=== PATIENT | female | born 1980 | race American Indian/Alaskan Native ===

== ENCOUNTER 2017-06-26 10:22 | Emergency (ER) | payer MEDICAID ==
[2017-06-26 11:24] LABS: ADD MAN DIFF? NO
[2017-06-26 11:32] LABS: BASOPHILS % 0.2 % (0.0-2.0); EOSINOPHILS # 0.1 10^3/ul (0.0-0.5); EOSINOPHILS % 0.5 % (0.0-7.0); HEMATOCRIT 38.4 % (37.0-47.0); LYMPHOCYTES % 19.3 % (15.0-51.0); MEAN CORPUSCULAR HEMOGLOBIN 27.4 pg (29.0-33.0); MEAN CORPUSCULAR HGB CONC 33.9 g/dl (32.0-37.0); MEAN CORPUSCULAR VOLUME 80.8 fl (82.0-101.0); MEAN PLATELET VOLUME 9.8 fl (7.4-10.4); MONOCYTE # 0.5 10^3/ul (0.3-0.9); MONOCYTES % 4.4 % (0.0-11.0); NEUTROPHIL # 7.7 10^3/ul (1.6-7.5); NEUTROPHILS % 75.1 % (39.0-77.0); PLATELET COUNT 272 10^3/UL (140-415); RED BLOOD COUNT 4.75 10^6/ul (4.20-5.40); RED CELL DISTRIBUTION WIDTH 13.5 % (11.5-14.5)
[2017-06-26 11:32] LABS: WHITE BLOOD COUNT 10.2 10^3/ul (4.8-10.8)
[2017-06-26 12:11] LABS: ADD UMIC YES; UR AMORPHOUS CRYSTAL FEW /HPF (NONE SEEN); UR ASCORBIC ACID 20 mg/dL (NEGATIVE); UR BACTERIA MODERATE /HPF (NONE SEEN); UR BILIRUBIN (Dip) NEGATIVE (NEGATIVE); UR BLOOD (Dip) 2+ mg/dL (NEGATIVE); UR CLARITY SLIGHTLY CLOUDY (CLEAR); UR COLOR YELLOW (YELLOW); UR GLUCOSE (Dip) NEGATIVE (NEGATIVE); UR KETONES (Dip) NEGATIVE (NEGATIVE); UR LEUKOCYTE ESTERASE (Dip) 1+ Leu/ul (NEGATIVE); UR NITRITE (Dip) NEGATIVE (NEGATIVE); UR RBC 3 /HPF (0-5); UR SPECIFIC GRAVITY (Dip) 1.006 (1.003-1.030); UR SQUAMOUS EPITHELIAL CELL FEW /HPF (FEW); UR TOTAL PROTEIN (Dip) NEGATIVE (NEGATIVE); UR UROBILINOGEN (Dip) NEGATIVE (NEGATIVE); UR WBC 7 /HPF (0-5)
== END 2017-06-26 13:17 | disposition home or self-care (01) ==
LOC: FTE 10:22
DX: O20.9 Hemorrhage in early pregnancy, unspecified (principal); O23.41 Unspecified infection of urinary tract in pregnancy, first trimester; O36.0111 Maternal care for anti-D [Rh] antibodies, first trimester, fetus 1; R10.2 Pelvic and perineal pain; Z3A.11 11 weeks gestation of pregnancy
CPT/HCPCS: 36415; 76801; 81001; 84702; 85025; 86900; 86901; 99284-25

== ENCOUNTER 2017-11-03 18:23 | Inpatient (IN) | payer OTHER ==
[2017-11-03 19:43] LABS: ADD MAN DIFF? NO
[2017-11-03 19:44] LABS: WHITE BLOOD COUNT 10.2 10^3/ul (4.8-10.8)
[2017-11-03 19:44] LABS: BASOPHILS % 0.2 % (0.0-2.0); EOSINOPHILS % 0.4 % (0.0-7.0); HEMATOCRIT 34.2 % (37.0-47.0); HEMOGLOBIN 11.5 g/dl (12.0-16.0); IMMATURE GRANS #M 0.06 10^3/ul; IMMATURE GRANS % (M) 0.6 %; LYMPHOCYTES # 1.5 10^3/ul (0.8-2.9); LYMPHOCYTES % 14.8 % (15.0-51.0); MEAN CORPUSCULAR HEMOGLOBIN 27.5 pg (29.0-33.0); MEAN CORPUSCULAR HGB CONC 33.6 g/dl (32.0-37.0); MEAN CORPUSCULAR VOLUME 81.8 fl (82.0-101.0); MEAN PLATELET VOLUME 9.9 fl (7.4-10.4); MONOCYTE # 0.4 10^3/ul (0.3-0.9); MONOCYTES % 4.3 % (0.0-11.0); NEUTROPHIL # 8.1 10^3/ul (1.6-7.5); NEUTROPHILS % 79.7 % (39.0-77.0); PLATELET COUNT 212 10^3/UL (140-415); RED BLOOD COUNT 4.18 10^6/ul (4.20-5.40); RED CELL DISTRIBUTION WIDTH 14.5 % (11.5-14.5)
[2017-11-03 19:56] LABS: ADD UMIC YES; UR ASCORBIC ACID NEGATIVE (NEGATIVE); UR BACTERIA FEW /HPF (NONE SEEN); UR BILIRUBIN (Dip) NEGATIVE (NEGATIVE); UR BLOOD (Dip) 3+ mg/dL (NEGATIVE); UR CLARITY CLEAR (CLEAR); UR COLOR YELLOW (YELLOW); UR GLUCOSE (Dip) NEGATIVE (NEGATIVE); UR KETONES (Dip) NEGATIVE (NEGATIVE); UR LEUKOCYTE ESTERASE (Dip) NEGATIVE Leu/ul (NEGATIVE); UR NITRITE (Dip) NEGATIVE (NEGATIVE); UR RBC 141 /HPF (0-5); UR SPECIFIC GRAVITY (Dip) 1.015 (1.003-1.030); UR TOTAL PROTEIN (Dip) NEGATIVE (NEGATIVE); UR UROBILINOGEN (Dip) NEGATIVE (NEGATIVE); UR WBC 1 /HPF (0-5)
[2017-11-03] MEDS ORDERED: GLUCAGON 1 MG INJ IM (20:00)
[2017-11-03] MEDS ORDERED: DEXTROSE 50% 50 ML SYRINGE IV ×2 (20:00)
[2017-11-03] MEDS ORDERED: GLUCOSE GEL 15 GRAM TUBE BUCCAL (20:00)
[2017-11-03] MEDS ORDERED: GLUCOSE GEL 15 GRAM TUBE PO ×2 (20:00)
[2017-11-03 20:06] LABS: GLUCOSE 100 mg/dl (70-220)
[2017-11-03] MEDS: LACTATED RINGER'S 1,000 ML IV (20:08)
[2017-11-03] MEDS: MAGNESIUM SULFATE 4 GM/100 ML 100 ML IV (20:15)
[2017-11-03] MEDS: BETAMET NA PHOS/AC(6 MG/ML) 5ML INJ IM (20:19)
[2017-11-03] MEDS ORDERED: CA GLUCONATE (GM) 10% 10ML INJ IV (20:30)
[2017-11-03] MEDS: MAGNESIUM SULFATE 20 GM/500 ML 500 ML IV (20:56)
[2017-11-03] MEDS: INSULIN ASPART [NOVOLOG] 3 ML PEN SC (21:00)
[2017-11-03] MEDS: metFORMIN (XR) 500 MG TAB PO (21:00)
[2017-11-04 01:22] LABS: MAGNESIUM 4.6 mg/dl (1.7-2.5)
[2017-11-04] MEDS: MAGNESIUM SULFATE 20 GM/500 ML 500 ML IV ×2 (06:42→15:57)
[2017-11-04] MEDS: LACTATED RINGER'S 1,000 ML IV ×2 (06:42→20:40)
[2017-11-04] MEDS: ACCU-CHEK XX ×5 (07:30→20:42)
[2017-11-04] MEDS: INSULIN ASPART [NOVOLOG] 3 ML PEN SC ×4 (07:35→21:00)
[2017-11-04] MEDS: PRENATAL VITAMIN PO (08:12)
[2017-11-04] MEDS: metFORMIN (XR) 500 MG TAB PO ×2 (08:12→17:36)
[2017-11-04 09:00] LABS: MAGNESIUM 5.7 mg/dl (1.7-2.5)
[2017-11-04 12:43] LABS: MAGNESIUM 5.9 mg/dl (1.7-2.5)
[2017-11-04] MEDS: ACETAMINOPHEN 325 MG TAB PO (18:41)
[2017-11-04 19:04] LABS: MAGNESIUM 5.9 mg/dl (1.7-2.5)
[2017-11-04] MEDS: BETAMET NA PHOS/AC(6 MG/ML) 5ML INJ IM (20:40)
[2017-11-05] MEDS: MAGNESIUM SULFATE 20 GM/500 ML 500 ML IV ×2 (01:02→09:53)
[2017-11-05 01:28] LABS: MAGNESIUM 6.2 mg/dl (1.7-2.5)
[2017-11-05] MEDS: ACCU-CHEK XX ×3 (07:30→15:00)
[2017-11-05] MEDS: INSULIN ASPART [NOVOLOG] 3 ML PEN SC ×3 (07:35→17:35)
[2017-11-05] MEDS: PRENATAL VITAMIN PO (08:55)
[2017-11-05] MEDS: metFORMIN (XR) 500 MG TAB PO ×2 (08:55→18:06)
[2017-11-05 09:40] LABS: MAGNESIUM 6.7 mg/dl (1.7-2.5)
[2017-11-05] MEDS: LACTATED RINGER'S 1,000 ML IV (09:46)
[2017-11-05] MEDS: NIFEdipine 10 MG CAP PO ×3 (11:06→18:06)
== END 2017-11-05 19:45 | disposition home or self-care (01) | DRG 780 ==
LOC: OBT 18:23 → L-D 18:25 → OBT 19:30 → PP1 19:30
DX: O47.03 False labor before 37 completed weeks of gestation, third trimester (principal); Z3A.30 30 weeks gestation of pregnancy; O13.4 Gestational [pregnancy-induced] hypertension without significant proteinuria, complicating childbirth; O24.429 Gestational diabetes mellitus in childbirth, unspecified control
CPT/HCPCS: 76815; 76817; 76818; 81001; 82947; 82962; 83735; 85025; 87086

== ENCOUNTER 2017-11-21 18:39 | Inpatient (IN) | payer OTHER ==
[2017-11-21] MEDS: LACTATED RINGER'S 1,000 ML IV ×2 (19:19→23:59)
[2017-11-21 19:20] LABS: ADD MAN DIFF? NO
[2017-11-21 19:26] LABS: WHITE BLOOD COUNT 8.6 10^3/ul (4.8-10.8)
[2017-11-21 19:26] LABS: BASOPHILS % 0.5 % (0.0-2.0); EOSINOPHILS % 0.5 % (0.0-7.0); HEMATOCRIT 35.1 % (37.0-47.0); HEMOGLOBIN 11.6 g/dl (12.0-16.0); LYMPHOCYTES # 1.6 10^3/ul (0.8-2.9); LYMPHOCYTES % 19.1 % (15.0-51.0); MEAN CORPUSCULAR HEMOGLOBIN 26.9 pg (29.0-33.0); MEAN CORPUSCULAR VOLUME 81.4 fl (82.0-101.0); MEAN PLATELET VOLUME 10.5 fl (7.4-10.4); MONOCYTE # 0.5 10^3/ul (0.3-0.9); MONOCYTES % 5.6 % (0.0-11.0); NEUTROPHIL # 6.3 10^3/ul (1.6-7.5); NEUTROPHILS % 73.7 % (39.0-77.0); PLATELET COUNT 253 10^3/UL (140-415); RED BLOOD COUNT 4.31 10^6/ul (4.20-5.40); RED CELL DISTRIBUTION WIDTH 14.6 % (11.5-14.5)
[2017-11-21 19:29] LABS: PLATELET COUNT 253 10^3/UL (140-415)
[2017-11-21] MEDS: TERBUTALINE 1 MG/ML INJ SC (19:33)
[2017-11-21 19:55] LABS: INR 0.91; PROTIME 12.3 Sec (11.9-14.9)
[2017-11-21 19:56] LABS: PARTIAL THROMBOPLASTIN TIME 27.5 Sec (25.0-35.0); THROMBIN TIME 15.4 SEC (13.8-19.1)
[2017-11-21] MEDS ORDERED: ACETAMINOPHEN 325 MG TAB PO (20:30)
[2017-11-21] MEDS ORDERED: GLUCAGON 1 MG INJ IM (21:00)
[2017-11-21] MEDS ORDERED: DEXTROSE 50% 50 ML SYRINGE IV ×2 (21:00)
[2017-11-21] MEDS ORDERED: GLUCOSE GEL 15 GRAM TUBE PO ×2 (21:00)
[2017-11-21] MEDS ORDERED: GLUCOSE GEL 15 GRAM TUBE BUCCAL (21:00)
[2017-11-21] MEDS: MAGNESIUM SULFATE 4 GM/100 ML 100 ML IV (21:13)
[2017-11-21] MEDS: MAGNESIUM SULFATE 20 GM/500 ML 500 ML IV (21:47)
[2017-11-21] MEDS: metFORMIN 850 MG TAB PO (22:20)
[2017-11-22 01:26] LABS: ALANINE AMINOTRANSFERASE 41 IU/L (13-69); ALBUMIN 3.6 g/dl (3.3-4.9); ALBUMIN/GLOBULIN RATIO 0.92; ALKALINE PHOSPHATASE 158 IU/L (42-121); ANION GAP 16 (8-16); ASPARTATE AMINO TRANSFERASE 47 IU/L (15-46); BILIRUBIN,INDIRECT 0.2 mg/dl (0-1.1); BILIRUBIN,TOTAL 0.2 mg/dl (0.2-1.3); BLOOD UREA NITROGEN 5 mg/dl (7-20); CALCIUM 8.4 mg/dl (8.4-10.2); CARBON DIOXIDE 23 mmol/L (21-31); CHLORIDE 104 mmol/L (97-110); GLUCOSE 98 mg/dl (70-220); MAGNESIUM 4.4 mg/dl (1.7-2.5); POTASSIUM 3.6 mmol/L (3.5-5.1); SODIUM 139 mmol/L (135-144); TOTAL PROTEIN 7.5 g/dl (6.1-8.1)
[2017-11-22] MEDS: LACTATED RINGER'S 1,000 ML IV ×2 (05:46→14:07)
[2017-11-22] MEDS: MAGNESIUM SULFATE 20 GM/500 ML 500 ML IV ×2 (07:22→16:55)
[2017-11-22 08:18] LABS: MAGNESIUM 5.2 mg/dl (1.7-2.5)
[2017-11-22] MEDS: ACCU-CHEK XX ×4 (08:30→20:32)
[2017-11-22] MEDS: metFORMIN 850 MG TAB PO ×2 (08:41→18:00)
[2017-11-22] MEDS: FERROUS SULFATE (EC) 325 MG TAB PO (08:41)
[2017-11-22] MEDS: PRENATAL VITAMIN PO (08:42)
[2017-11-22] MEDS: BETAMET NA PHOS/AC(6 MG/ML) 5ML INJ IM (12:54)
[2017-11-22 13:50] LABS: MAGNESIUM 5.4 mg/dl (1.7-2.5)
[2017-11-22 17:12] LABS: ADD UMIC YES; UR ASCORBIC ACID NEGATIVE (NEGATIVE); UR BACTERIA FEW /HPF (NONE SEEN); UR BILIRUBIN (Dip) NEGATIVE (NEGATIVE); UR BLOOD (Dip) 2+ mg/dL (NEGATIVE); UR CLARITY CLEAR (CLEAR); UR COLOR STRAW (YELLOW); UR GLUCOSE (Dip) NEGATIVE (NEGATIVE); UR KETONES (Dip) NEGATIVE (NEGATIVE); UR LEUKOCYTE ESTERASE (Dip) NEGATIVE Leu/ul (NEGATIVE); UR NITRITE (Dip) NEGATIVE (NEGATIVE); UR RBC 0 /HPF (0-5); UR SPECIFIC GRAVITY (Dip) 1.004 (1.003-1.030); UR TOTAL PROTEIN (Dip) NEGATIVE (NEGATIVE); UR UROBILINOGEN (Dip) NEGATIVE (NEGATIVE); UR WBC 1 /HPF (0-5)
[2017-11-22 18:11] LABS: MAGNESIUM 5.7 mg/dl (1.7-2.5)
[2017-11-23] MEDS: MAGNESIUM SULFATE 20 GM/500 ML 500 ML IV ×2 (03:49→13:58)
[2017-11-23] MEDS: LACTATED RINGER'S 1,000 ML IV ×2 (03:49→15:55)
[2017-11-23] MEDS: ACCU-CHEK XX ×4 (07:58→20:37)
[2017-11-23] MEDS: metFORMIN 850 MG TAB PO ×2 (08:14→17:47)
[2017-11-23] MEDS: FERROUS SULFATE (EC) 325 MG TAB PO (08:14)
[2017-11-23] MEDS: PRENATAL VITAMIN PO (08:14)
[2017-11-23] MEDS: AL HYDROX/MG HYDROX/SIMETH 30 ML CUP PO (09:09)
[2017-11-23] MEDS: BETAMET NA PHOS/AC(6 MG/ML) 5ML INJ IM (12:06)
[2017-11-23] MEDS: NIFEdipine 10 MG CAP PO (20:10)
[2017-11-23] MEDS: NITROFURANTOIN (SR) 100 MG CAP PO (20:39)
[2017-11-24] MEDS: NIFEdipine 10 MG CAP PO ×4 (00:53→17:41)
[2017-11-24] MEDS: LACTATED RINGER'S 1,000 ML IV (05:28)
[2017-11-24] MEDS: ACCU-CHEK XX ×3 (08:21→15:25)
[2017-11-24] MEDS: metFORMIN 850 MG TAB PO ×2 (08:24→17:40)
[2017-11-24] MEDS: FERROUS SULFATE (EC) 325 MG TAB PO (08:25)
[2017-11-24] MEDS: NITROFURANTOIN (SR) 100 MG CAP PO (08:25)
[2017-11-24] MEDS: PRENATAL VITAMIN PO (08:25)
== END 2017-11-24 19:45 | disposition home or self-care (01) | DRG 778 ==
LOC: OBT 18:39 → L-D 18:41 → OBT 19:32 → L-D 19:32 → PP1 21:35
PROVIDERS: Obstetrics & Gynecology
DX: O60.03 Preterm labor without delivery, third trimester (principal)
CPT/HCPCS: 76815; 76817; 76818; 80053; 81001; 82962; 83735; 85025; 85049; 85610; 85670; 85730; 87086; 96372

== ENCOUNTER 2017-12-09 17:31 | Inpatient (IN) | payer OTHER ==
[2017-12-09 18:49] LABS: ADD MAN DIFF? NO
[2017-12-09 18:51] LABS: BASOPHILS % 0.3 % (0.0-2.0); EOSINOPHILS % 0.3 % (0.0-7.0); HEMATOCRIT 34.7 % (37.0-47.0); HEMOGLOBIN 11.2 g/dl (12.0-16.0); LYMPHOCYTES % 21.2 % (15.0-51.0); MEAN CORPUSCULAR HEMOGLOBIN 25.7 pg (29.0-33.0); MEAN CORPUSCULAR HGB CONC 32.3 g/dl (32.0-37.0); MEAN CORPUSCULAR VOLUME 79.6 fl (82.0-101.0); MEAN PLATELET VOLUME 10.8 fl (7.4-10.4); MONOCYTE # 0.4 10^3/ul (0.3-0.9); MONOCYTES % 4.6 % (0.0-11.0); NEUTROPHILS % 73.3 % (39.0-77.0); PLATELET COUNT 260 10^3/UL (140-415); RED BLOOD COUNT 4.36 10^6/ul (4.20-5.40); RED CELL DISTRIBUTION WIDTH 14.8 % (11.5-14.5)
[2017-12-09 18:51] LABS: WHITE BLOOD COUNT 9.5 10^3/ul (4.8-10.8)
[2017-12-09] MEDS: LACTATED RINGER'S 1,000 ML IV (18:51)
[2017-12-09] MEDS: ACCU-CHEK XX (19:35)
[2017-12-09] MEDS: MAGNESIUM SULFATE 4 GM/100 ML 100 ML IV (19:46)
[2017-12-09 19:58] LABS: ALANINE AMINOTRANSFERASE 33 IU/L (13-69); ALBUMIN 3.9 g/dl (3.3-4.9); ALBUMIN/GLOBULIN RATIO 0.97; ALKALINE PHOSPHATASE 175 IU/L (42-121); ANION GAP 14 (8-16); ASPARTATE AMINO TRANSFERASE 42 IU/L (15-46); BILIRUBIN,INDIRECT 0.3 mg/dl (0-1.1); BILIRUBIN,TOTAL 0.3 mg/dl (0.2-1.3); BLOOD UREA NITROGEN 6 mg/dl (7-20); CALCIUM 9.1 mg/dl (8.4-10.2); CARBON DIOXIDE 21 mmol/L (21-31); CHLORIDE 105 mmol/L (97-110); CREATININE 0.35 mg/dl (0.44-1.00); GLUCOSE 85 mg/dl (70-220); POTASSIUM 3.8 mmol/L (3.5-5.1); SODIUM 136 mmol/L (135-144); TOTAL PROTEIN 7.9 g/dl (6.1-8.1)
[2017-12-09] MEDS: MAGNESIUM SULFATE 20 GM/500 ML 500 ML IV (20:13)
[2017-12-09] MEDS: TERBUTALINE 1 MG/ML INJ SC (21:24)
[2017-12-10] MEDS: LACTATED RINGER'S 1,000 ML IV ×2 (01:12→19:01)
[2017-12-10 01:28] LABS: MAGNESIUM 3.7 mg/dl (1.7-2.5)
[2017-12-10] MEDS: MAGNESIUM SULFATE 20 GM/500 ML 500 ML IV ×2 (04:53→15:29)
[2017-12-10 08:08] LABS: MAGNESIUM 5.4 mg/dl (1.7-2.5)
[2017-12-10 18:01] LABS: MAGNESIUM 6.3 mg/dl (1.7-2.5)
[2017-12-10] MEDS: ACETAMINOPHEN 325 MG TAB PO ×2 (19:02→23:56)
[2017-12-11 01:44] LABS: MAGNESIUM 6.2 mg/dl (1.7-2.5)
[2017-12-11] MEDS: LACTATED RINGER'S 1,000 ML IV ×2 (02:12→16:38)
[2017-12-11] MEDS: MAGNESIUM SULFATE 20 GM/500 ML 500 ML IV ×2 (02:12→12:58)
[2017-12-11 07:47] LABS: MAGNESIUM 6.5 mg/dl (1.7-2.5)
[2017-12-11] MEDS: PRENATAL VITAMIN PO (08:43)
[2017-12-11] MEDS: metFORMIN 500 MG TAB PO (08:43)
[2017-12-11 14:19] LABS: MAGNESIUM 5.9 mg/dl (1.7-2.5)
[2017-12-11] MEDS: ACETAMINOPHEN 325 MG TAB PO (16:33)
[2017-12-11] MEDS: ACCU-CHEK XX ×2 (16:43→19:35)
[2017-12-11 18:39] LABS: MAGNESIUM 6.3 mg/dl (1.7-2.5)
[2017-12-11] MEDS: NIFEdipine 10 MG CAP PO (19:56)
[2017-12-12] MEDS: NIFEdipine 10 MG CAP PO ×3 (00:07→11:51)
[2017-12-12] MEDS: LACTATED RINGER'S 1,000 ML IV ×2 (02:28→10:04)
[2017-12-12] MEDS: PRENATAL VITAMIN PO (09:19)
[2017-12-12] MEDS: metFORMIN 500 MG TAB PO (09:20)
[2017-12-12] MEDS: ACCU-CHEK XX ×3 (11:20→15:05)
== END 2017-12-12 15:45 | disposition home or self-care (01) | DRG 782 ==
LOC: OBT 17:31 → PP1 12-12 11:09 → L-D 17:32 → OBT 17:55 → L-D 17:55
PROVIDERS: Obstetrics & Gynecology
DX: O46.93 Antepartum hemorrhage, unspecified, third trimester (principal); O62.9 Abnormality of forces of labor, unspecified; Z3A.33 33 weeks gestation of pregnancy
CPT/HCPCS: 76815; 80053; 82962; 83735; 85025; 86850; 86900; 86901

== ENCOUNTER 2017-12-16 08:50 | Inpatient (IN) | payer OTHER ==
[2017-12-16] MEDS: BETAMET NA PHOS/AC(6 MG/ML) 5ML INJ IM (10:50)
[2017-12-16] MEDS: LACTATED RINGER'S 1,000 ML IV ×2 (10:51→21:40)
[2017-12-16] MEDS: MAGNESIUM SULFATE 4 GM/100 ML 100 ML IV (10:56)
[2017-12-16 11:25] LABS: ADD MAN DIFF? NO
[2017-12-16] MEDS: MAGNESIUM SULFATE 20 GM/500 ML 500 ML IV ×2 (11:25→21:40)
[2017-12-16 11:33] LABS: BASOPHILS % 0.4 % (0.0-2.0); EOSINOPHILS % 0.5 % (0.0-7.0); HEMATOCRIT 33.5 % (37.0-47.0); HEMOGLOBIN 10.8 g/dl (12.0-16.0); LYMPHOCYTES # 1.7 10^3/ul (0.8-2.9); LYMPHOCYTES % 20.4 % (15.0-51.0); MEAN CORPUSCULAR HEMOGLOBIN 26.2 pg (29.0-33.0); MEAN CORPUSCULAR HGB CONC 32.2 g/dl (32.0-37.0); MEAN CORPUSCULAR VOLUME 81.3 fl (82.0-101.0); MEAN PLATELET VOLUME 10.8 fl (7.4-10.4); MONOCYTE # 0.5 10^3/ul (0.3-0.9); MONOCYTES % 5.4 % (0.0-11.0); NEUTROPHIL # 6.1 10^3/ul (1.6-7.5); NEUTROPHILS % 72.9 % (39.0-77.0); PLATELET COUNT 276 10^3/UL (140-415); RED BLOOD COUNT 4.12 10^6/ul (4.20-5.40); RED CELL DISTRIBUTION WIDTH 14.9 % (11.5-14.5)
[2017-12-16 11:33] LABS: WHITE BLOOD COUNT 8.4 10^3/ul (4.8-10.8)
[2017-12-16 12:22] LABS: ADD UMIC YES; UR ASCORBIC ACID NEGATIVE (NEGATIVE); UR BACTERIA FEW /HPF (NONE SEEN); UR BILIRUBIN (Dip) NEGATIVE (NEGATIVE); UR BLOOD (Dip) 3+ mg/dL (NEGATIVE); UR CLARITY CLEAR (CLEAR); UR COLOR YELLOW (YELLOW); UR GLUCOSE (Dip) NEGATIVE (NEGATIVE); UR KETONES (Dip) NEGATIVE (NEGATIVE); UR LEUKOCYTE ESTERASE (Dip) NEGATIVE Leu/ul (NEGATIVE); UR NITRITE (Dip) NEGATIVE (NEGATIVE); UR RBC 5 /HPF (0-5); UR SPECIFIC GRAVITY (Dip) 1.005 (1.003-1.030); UR TOTAL PROTEIN (Dip) NEGATIVE (NEGATIVE); UR UROBILINOGEN (Dip) NEGATIVE (NEGATIVE); UR WBC 0 /HPF (0-5)
[2017-12-16] MEDS: metFORMIN (XR) 500 MG TAB PO (17:42)
[2017-12-16 18:32] LABS: ADD MAN DIFF? NO
[2017-12-16 18:33] LABS: MAGNESIUM 5.4 mg/dl (1.7-2.5)
[2017-12-16 18:34] LABS: WHITE BLOOD COUNT 8.6 10^3/ul (4.8-10.8)
[2017-12-16 18:34] LABS: BASOPHILS % 0.1 % (0.0-2.0); HEMATOCRIT 34.4 % (37.0-47.0); HEMOGLOBIN 10.9 g/dl (12.0-16.0); LYMPHOCYTES % 11.8 % (15.0-51.0); MEAN CORPUSCULAR HEMOGLOBIN 25.6 pg (29.0-33.0); MEAN CORPUSCULAR HGB CONC 31.7 g/dl (32.0-37.0); MEAN CORPUSCULAR VOLUME 80.8 fl (82.0-101.0); MEAN PLATELET VOLUME 10.6 fl (7.4-10.4); MONOCYTE # 0.1 10^3/ul (0.3-0.9); MONOCYTES % 0.7 % (0.0-11.0); NEUTROPHIL # 7.5 10^3/ul (1.6-7.5); NEUTROPHILS % 87.1 % (39.0-77.0); PLATELET COUNT 267 10^3/UL (140-415); RED BLOOD COUNT 4.26 10^6/ul (4.20-5.40); RED CELL DISTRIBUTION WIDTH 15.1 % (11.5-14.5)
[2017-12-17] MEDS: ACETAMINOPHEN 325 MG TAB PO (00:34)
[2017-12-17 01:33] LABS: MAGNESIUM 5.8 mg/dl (1.7-2.5)
[2017-12-17] MEDS: LACTATED RINGER'S 1,000 ML IV ×4 (02:30→23:18)
[2017-12-17 07:14] LABS: MAGNESIUM 6.5 mg/dl (1.7-2.5)
[2017-12-17] MEDS: MAGNESIUM SULFATE 20 GM/500 ML 500 ML IV ×2 (07:26→20:00)
[2017-12-17] MEDS: metFORMIN (XR) 500 MG TAB PO ×2 (08:28→17:21)
[2017-12-17] MEDS: PRENATAL VITAMIN PO (11:11)
[2017-12-17] MEDS: BETAMET NA PHOS/AC(6 MG/ML) 5ML INJ IM (11:11)
[2017-12-17 13:05] LABS: MAGNESIUM 6.2 mg/dl (1.7-2.5)
[2017-12-17] MEDS: NIFEdipine 10 MG CAP PO ×2 (15:42→21:19)
[2017-12-18] MEDS: MAGNESIUM SULFATE 20 GM/500 ML 500 ML IV (02:05)
[2017-12-18] MEDS: NIFEdipine 10 MG CAP PO ×4 (03:17→18:49)
[2017-12-18] MEDS: metFORMIN (XR) 500 MG TAB PO ×2 (08:03→18:27)
[2017-12-18] MEDS: PRENATAL VITAMIN PO (11:41)
[2017-12-18] MEDS: LACTATED RINGER'S 1,000 ML IV ×2 (18:27→18:30)
[2017-12-19] MEDS: NIFEdipine 10 MG CAP PO ×5 (00:02→23:44)
[2017-12-19] MEDS: LACTATED RINGER'S 1,000 ML IV ×2 (02:52→17:04)
[2017-12-19] MEDS: metFORMIN (XR) 500 MG TAB PO ×2 (09:38→17:44)
[2017-12-19] MEDS: PRENATAL VITAMIN PO (09:39)
[2017-12-19] MEDS: FERROUS SULFATE (EC) 325 MG TAB PO (09:40)
[2017-12-19] MEDS: MAGNESIUM HYDROXIDE 30ML CUP PO (12:33)
[2017-12-20] MEDS: NIFEdipine 10 MG CAP PO ×3 (05:27→17:43)
[2017-12-20] MEDS: FERROUS SULFATE (EC) 325 MG TAB PO (08:06)
[2017-12-20] MEDS: metFORMIN (XR) 500 MG TAB PO ×2 (08:07→17:43)
[2017-12-20] MEDS: PRENATAL VITAMIN PO (08:07)
[2017-12-20] MEDS: LACTATED RINGER'S 1,000 ML IV (10:17)
[2017-12-21] MEDS: NIFEdipine 10 MG CAP PO ×5 (00:03→23:53)
[2017-12-21] MEDS: ONDANSETRON 4 MG INJ IV (00:12)
[2017-12-21] MEDS: LACTATED RINGER'S 1,000 ML IV (06:01)
[2017-12-21] MEDS: PRENATAL VITAMIN PO (08:31)
[2017-12-21] MEDS: FERROUS SULFATE (EC) 325 MG TAB PO (08:31)
[2017-12-21] MEDS: metFORMIN (XR) 500 MG TAB PO ×2 (08:31→17:35)
[2017-12-22] MEDS: LACTATED RINGER'S 1,000 ML IV ×2 (03:01→18:29)
[2017-12-22] MEDS: NIFEdipine 10 MG CAP PO ×4 (05:49→23:45)
[2017-12-22] MEDS: FERROUS SULFATE (EC) 325 MG TAB PO (08:39)
[2017-12-22] MEDS: PRENATAL VITAMIN PO (08:39)
[2017-12-22] MEDS: metFORMIN (XR) 500 MG TAB PO ×2 (08:40→17:44)
[2017-12-22] MEDS: ACETAMINOPHEN 325 MG TAB PO (22:39)
[2017-12-23] MEDS: NIFEdipine 10 MG CAP PO ×3 (06:01→17:41)
[2017-12-23] MEDS: PRENATAL VITAMIN PO ×2 (08:04→08:10)
[2017-12-23] MEDS: metFORMIN (XR) 500 MG TAB PO ×2 (08:10→17:41)
[2017-12-23] MEDS: FERROUS SULFATE (EC) 325 MG TAB PO (08:10)
[2017-12-23] MEDS ORDERED: MISOPROSTOL 50 MCG CAPSULE PO (12:00)
[2017-12-23] MEDS: LACTATED RINGER'S 1,000 ML IV (13:49)
[2017-12-24] MEDS: NIFEdipine 10 MG CAP PO ×4 (00:06→17:39)
[2017-12-24 06:22] LABS: ADD MAN DIFF? NO
[2017-12-24 06:33] LABS: BASOPHILS % 0.4 % (0.0-2.0); EOSINOPHILS # 0.1 10^3/ul (0.0-0.5); HEMATOCRIT 32.9 % (37.0-47.0); HEMOGLOBIN 10.4 g/dl (12.0-16.0); LYMPHOCYTES # 2.7 10^3/ul (0.8-2.9); LYMPHOCYTES % 30.1 % (15.0-51.0); MEAN CORPUSCULAR HEMOGLOBIN 25.8 pg (29.0-33.0); MEAN CORPUSCULAR HGB CONC 31.6 g/dl (32.0-37.0); MEAN CORPUSCULAR VOLUME 81.6 fl (82.0-101.0); MEAN PLATELET VOLUME 10.8 fl (7.4-10.4); MONOCYTE # 0.5 10^3/ul (0.3-0.9); MONOCYTES % 5.3 % (0.0-11.0); NEUTROPHIL # 5.7 10^3/ul (1.6-7.5); NEUTROPHILS % 62.6 % (39.0-77.0); PLATELET COUNT 292 10^3/UL (140-415); RED BLOOD COUNT 4.03 10^6/ul (4.20-5.40)
[2017-12-24] MEDS: LACTATED RINGER'S 1,000 ML IV ×2 (08:02→21:52)
[2017-12-24] MEDS: metFORMIN (XR) 500 MG TAB PO ×2 (08:34→18:23)
[2017-12-24] MEDS: FERROUS SULFATE (EC) 325 MG TAB PO (09:38)
[2017-12-24] MEDS: PRENATAL VITAMIN PO (09:38)
[2017-12-24] MEDS: SENNA TAB PO (09:39)
[2017-12-25 04:00] LABS: PROTIME 12.2 Sec (11.9-14.9)
[2017-12-25] MEDS ORDERED: BUTORPHANOL 2 MG INJ IV (08:30)
[2017-12-25] MEDS ORDERED: MISOPROSTOL 200 MCG TAB PR (08:30)
[2017-12-25] MEDS ORDERED: IBUPROFEN 600 MG TAB PO (08:30)
[2017-12-25] MEDS ORDERED: OXYTOCIN 30 UNITS/LR 500 ML IV (08:30)
[2017-12-25] MEDS ORDERED: METHYLERGONOVINE 0.2 MG INJ IM (08:30)
[2017-12-25] MEDS ORDERED: LIDOCAINE 1% (MPF) 30 ML INJ INJ (08:30)
[2017-12-25] MEDS ORDERED: CARBOPROST 250 MCG INJ IM (08:30)
[2017-12-25] MEDS: OXYTOCIN 30 UNITS/LR 500 ML IV (09:21)
[2017-12-25 10:31] LABS: ADD MAN DIFF? NO
[2017-12-25 10:35] LABS: WHITE BLOOD COUNT 8.6 10^3/ul (4.8-10.8)
[2017-12-25 10:35] LABS: BASOPHILS % 0.3 % (0.0-2.0); EOSINOPHILS # 0.1 10^3/ul (0.0-0.5); EOSINOPHILS % 0.7 % (0.0-7.0); HEMATOCRIT 33.3 % (37.0-47.0); HEMOGLOBIN 10.5 g/dl (12.0-16.0); LYMPHOCYTES # 1.9 10^3/ul (0.8-2.9); LYMPHOCYTES % 21.9 % (15.0-51.0); MEAN CORPUSCULAR HEMOGLOBIN 25.6 pg (29.0-33.0); MEAN CORPUSCULAR HGB CONC 31.5 g/dl (32.0-37.0); MEAN CORPUSCULAR VOLUME 81.2 fl (82.0-101.0); MEAN PLATELET VOLUME 10.5 fl (7.4-10.4); MONOCYTE # 0.4 10^3/ul (0.3-0.9); MONOCYTES % 4.5 % (0.0-11.0); NEUTROPHIL # 6.2 10^3/ul (1.6-7.5); NEUTROPHILS % 72.1 % (39.0-77.0); PLATELET COUNT 281 10^3/UL (140-415)
[2017-12-25] MEDS: AMPICILLIN 2 GM/NS (PMX) 100 ML IVPB (10:42)
[2017-12-25] MEDS: LACTATED RINGER'S 1,000 ML IV* ×2 (10:43→16:25)
[2017-12-25 10:55] LABS: INR 0.91; PROTIME 12.3 Sec (11.9-14.9)
[2017-12-25 10:56] LABS: PARTIAL THROMBOPLASTIN TIME 27.2 Sec (23.0-35.0)
[2017-12-25 11:37] LABS: HEPATITIS B SURFACE ANTIGEN NEGATIVE (NEGATIVE)
[2017-12-25] MEDS: AMPICILLIN 1 GM/NS (PMX) 50 ML IVPB ×3 (13:49→21:01)
[2017-12-25 15:24] LABS: RAPID PLASMA REAGIN NONREACTIVE (NR)
[2017-12-25] MEDS ORDERED: FENTAnyl 2MCG/ML-ROPIV 0.2% 100 ML BAG EPI (15:30)
[2017-12-25] MEDS ORDERED: NALOXONE (0.4 MG/ML) INJ IV (15:30)
[2017-12-25] MEDS ORDERED: DEXTROSE 5%-LR 1,000 ML IV (18:00)
[2017-12-25] MEDS ORDERED: CEFAZOLIN 2 GM/50 ML (PMX) 50 ML IVPB (22:56)
[2017-12-25] MEDS: CEFAZOLIN 2 GM/50 ML (PMX) 50 ML IV (23:15)
[2017-12-25] MEDS ORDERED: NA BICARBONATE 8.4% 50 ML SYG (23:20)
[2017-12-25] MEDS ORDERED: LIDOCAINE 2% (SDV) 5 ML INJ (23:20)
[2017-12-25] MEDS ORDERED: ONDANSETRON 4 MG INJ (23:31)
[2017-12-25] MEDS ORDERED: DEXAMETHASONE 4 MG/ML 1 ML INJ (23:31)
[2017-12-26] MEDS ORDERED: MIDAZOLAM 1 MG/ML 2 ML INJ ×2 (00:11)
[2017-12-26] MEDS ORDERED: morphine SULFATE/PF (10 MG/10 ML) INJ (00:12)
[2017-12-26] MEDS ORDERED: PHENYLephrine (100 MCG/ML) 5ML SYG (00:16)
[2017-12-26] MEDS: LACTATED RINGER'S 1,000 ML IV* (00:19)
[2017-12-26] MEDS ORDERED: FLUMAZENIL 0.5 MG INJ (00:32)
[2017-12-26] MEDS: AMPICILLIN 1 GM/NS (PMX) 50 ML IVPB (01:00)
[2017-12-26] MEDS ORDERED: KETOROLAC 30 MG INJ (01:14)
[2017-12-26] MEDS: KETOROLAC 30 MG INJ IV ×4 (01:18→23:37)
[2017-12-26] MEDS: OXYTOCIN 30 UNITS/LR 500 ML IV ×2 (01:42)
[2017-12-26] MEDS: AZITHROMYCIN 500MG/NS (PMX) 250 ML IVPB (02:40)
[2017-12-26] MEDS ORDERED: HYDROmorphONE (0.2 MG/ML) 10ML SYG IV ×3 (03:15→03:30)
[2017-12-26] MEDS ORDERED: DIPHENHYDRAMINE 50 MG INJ IV (04:31)
[2017-12-26] MEDS ORDERED: ZOLPIDEM 5 MG TAB PO (04:32)
[2017-12-26] MEDS ORDERED: NALOXONE (0.4 MG/ML) INJ IV (04:32)
[2017-12-26] MEDS ORDERED: HYDROmorphONE 0.5 MG/0.5 ML SYG IV ×2 (04:32)
[2017-12-26] MEDS ORDERED: ONDANSETRON 4 MG INJ IV (04:32)
[2017-12-26] MEDS ORDERED: HYDROCODONE/APAP (5/325) TAB PO (05:00)
[2017-12-26] MEDS ORDERED: CARBOPROST 250 MCG INJ IM (05:00)
[2017-12-26] MEDS ORDERED: MISOPROSTOL 200 MCG TAB PR (05:00)
[2017-12-26] MEDS ORDERED: OXYTOCIN 30 UNITS/LR 500 ML IV (05:00)
[2017-12-26] MEDS ORDERED: METHYLERGONOVINE 0.2 MG INJ IM (05:00)
[2017-12-26] MEDS: CEFAZOLIN 2 GM/50 ML (PMX) 50 ML IV ×3 (05:52→21:02)
[2017-12-26] MEDS: ACCU-CHEK XX ×5 (06:00→21:02)
[2017-12-26] MEDS: CLINDAMYCIN 300 MG CAP PO ×4 (06:15→23:37)
[2017-12-26] MEDS ORDERED: OXYTOCIN 30 UNITS/LR 500 ML BAG IV (07:00)
[2017-12-26] MEDS: LACTATED RINGER'S 1,000 ML IV ×3 (08:17→17:01)
[2017-12-26] MEDS: metFORMIN (XR) 500 MG TAB PO ×2 (08:22→18:16)
[2017-12-26] MEDS: SENNA/DOCUSATE NA (8.6MG/50MG) TAB PO ×2 (09:12→21:02)
[2017-12-26 13:42] LABS: ADD MAN DIFF? NO
[2017-12-26 13:45] LABS: BASOPHILS % 0.1 % (0.0-2.0); EOSINOPHILS % 0.1 % (0.0-7.0); HEMATOCRIT 27.6 % (37.0-47.0); HEMOGLOBIN 8.8 g/dl (12.0-16.0); LYMPHOCYTES # 2.2 10^3/ul (0.8-2.9); LYMPHOCYTES % 13.9 % (15.0-51.0); MEAN CORPUSCULAR HGB CONC 31.9 g/dl (32.0-37.0); MEAN CORPUSCULAR VOLUME 81.7 fl (82.0-101.0); MEAN PLATELET VOLUME 10.4 fl (7.4-10.4); MONOCYTE # 0.8 10^3/ul (0.3-0.9); MONOCYTES % 4.9 % (0.0-11.0); NEUTROPHIL # 12.8 10^3/ul (1.6-7.5); NEUTROPHILS % 80.5 % (39.0-77.0); PLATELET COUNT 244 10^3/UL (140-415); RED BLOOD COUNT 3.38 10^6/ul (4.20-5.40); RED CELL DISTRIBUTION WIDTH 15.3 % (11.5-14.5)
[2017-12-26 13:45] LABS: WHITE BLOOD COUNT 15.9 10^3/ul (4.8-10.8)
[2017-12-26] MEDS: BISACODYL 10 MG SUPP PR (18:05)
[2017-12-26] MEDS: LANOLIN 7 GM TUBE TOP (23:37)
[2017-12-27] MEDS: LACTATED RINGER'S 1,000 ML IV ×3 (04:57→20:57)
[2017-12-27] MEDS: CLINDAMYCIN 300 MG CAP PO ×3 (06:05→17:59)
[2017-12-27] MEDS: IBUPROFEN 800 MG TAB PO ×3 (06:05→22:03)
[2017-12-27] MEDS: ACCU-CHEK XX ×3 (07:30→13:50)
[2017-12-27 08:54] LABS: ADD MAN DIFF? NO
[2017-12-27 08:59] LABS: BASOPHILS % 0.2 % (0.0-2.0); EOSINOPHILS % 0.1 % (0.0-7.0); HEMATOCRIT 26.5 % (37.0-47.0); HEMOGLOBIN 8.5 g/dl (12.0-16.0); LYMPHOCYTES # 1.8 10^3/ul (0.8-2.9); LYMPHOCYTES % 13.2 % (15.0-51.0); MEAN CORPUSCULAR HGB CONC 32.1 g/dl (32.0-37.0); MONOCYTE # 0.5 10^3/ul (0.3-0.9); MONOCYTES % 3.8 % (0.0-11.0); NEUTROPHIL # 11.2 10^3/ul (1.6-7.5); NEUTROPHILS % 82.3 % (39.0-77.0); PLATELET COUNT 265 10^3/UL (140-415); RED BLOOD COUNT 3.27 10^6/ul (4.20-5.40); RED CELL DISTRIBUTION WIDTH 15.7 % (11.5-14.5)
[2017-12-27 08:59] LABS: WHITE BLOOD COUNT 13.6 10^3/ul (4.8-10.8)
[2017-12-27] MEDS: SENNA/DOCUSATE NA (8.6MG/50MG) TAB PO ×2 (09:31→21:00)
[2017-12-27] MEDS: metFORMIN (XR) 500 MG TAB PO ×2 (09:33→17:59)
[2017-12-27] MEDS: OXYCODONE/ACETAMINOPHEN (5/325) TAB PO (11:40)
[2017-12-27] MEDS: NA PHOSPHATE/BIPHOS 133 ML ENEMA PR (12:38)
[2017-12-27] MEDS: CIPROFLOXACIN 500 MG TAB PO (17:59)
[2017-12-28] MEDS: CLINDAMYCIN 300 MG CAP PO ×4 (00:50→18:13)
[2017-12-28] MEDS: LACTATED RINGER'S 1,000 ML IV ×2 (04:57→12:57)
[2017-12-28] MEDS: CIPROFLOXACIN 500 MG TAB PO ×2 (06:16→18:17)
[2017-12-28] MEDS: IBUPROFEN 800 MG TAB PO ×2 (06:17→14:00)
[2017-12-28 07:39] LABS: ADD MAN DIFF? NO
[2017-12-28 07:44] LABS: WHITE BLOOD COUNT 9.3 10^3/ul (4.8-10.8)
[2017-12-28 07:44] LABS: BASOPHILS % 0.2 % (0.0-2.0); EOSINOPHILS # 0.1 10^3/ul (0.0-0.5); EOSINOPHILS % 0.5 % (0.0-7.0); HEMATOCRIT 27.7 % (37.0-47.0); HEMOGLOBIN 8.7 g/dl (12.0-16.0); LYMPHOCYTES # 2.2 10^3/ul (0.8-2.9); LYMPHOCYTES % 23.6 % (15.0-51.0); MEAN CORPUSCULAR HEMOGLOBIN 25.8 pg (29.0-33.0); MEAN CORPUSCULAR HGB CONC 31.4 g/dl (32.0-37.0); MEAN CORPUSCULAR VOLUME 82.2 fl (82.0-101.0); MEAN PLATELET VOLUME 10.2 fl (7.4-10.4); MONOCYTE # 0.5 10^3/ul (0.3-0.9); MONOCYTES % 5.4 % (0.0-11.0); NEUTROPHIL # 6.5 10^3/ul (1.6-7.5); NEUTROPHILS % 69.8 % (39.0-77.0); PLATELET COUNT 258 10^3/UL (140-415); RED BLOOD COUNT 3.37 10^6/ul (4.20-5.40)
[2017-12-28] MEDS: metFORMIN (XR) 500 MG TAB PO ×2 (08:28→18:13)
[2017-12-28] MEDS: SENNA/DOCUSATE NA (8.6MG/50MG) TAB PO (08:28)
[2017-12-28] MEDS: OXYCODONE/ACETAMINOPHEN (5/325) TAB PO (18:18)
[2017-12-29] MEDS ORDERED: DIPHTH/TET/ACEL PERTUSS (ADULT) 0.5 ML VIAL IM* (09:00)
[2017-12-29] MEDS ORDERED: MEASLES,MUMPS,RUBELLA VACCINE INJ SC* (09:00)
== END 2017-12-28 20:30 | disposition home or self-care (01) | DRG 785 ==
LOC: OBT 08:50 → PP1 12-18 23:21 → L-D 12-22 11:17 → PP1 12-26 04:26 → L-D 08:50 → OBT 09:50 → L-D 09:50
PROC: 10D00Z1 Extraction of Products of Conception, Low, Open Approach (ICD-10-PCS; principal; 2017-12-26)
PROC: 0UL70ZZ Occlusion of Bilateral Fallopian Tubes, Open Approach (ICD-10-PCS; 2017-12-26)
DX: O60.14X0 Preterm labor third trimester with preterm delivery third trimester, not applicable or unspecified (principal); O76 Abnormality in fetal heart rate and rhythm complicating labor and delivery; O64.0XX0 Obstructed labor due to incomplete rotation of fetal head, not applicable or unspecified; Z30.2 Encounter for sterilization; Z3A.36 36 weeks gestation of pregnancy; Z37.0 Single live birth
CPT/HCPCS: 62319; 76818; 81001; 82962; 83735; 85025; 85610; 85730; 86592; 86850; 86900; 86901; 87086; 87340; 88302; 90686